=== PATIENT | female | born 1950 | race Caucasian/White ===

== ENCOUNTER → 2016-08-25 | Day surgery (SDC) | payer MEDICARE, OTHER ==
[~2016-08-25] VITALS: Ht 170.2 cm; Wt 79.4 kg
[~2016-08-25] MED LIST: ACETAMINOPHEN 325 MG TAB PO PRN; ACETYLCHOLINE OPHTH SOLN 1% 2ML As Ordered ONE; ACETYLCHOLINE OPHTH SOLN 1% 2ML XX ONE; ALEV220C2 PO; ASPI81TA85 PO; AcetaZOLAMIDE 500 MG ER CAP PO ONE; BSS with VANC/TOB/EPI for EYE CASES IR ONE; CEFUROXIME 1MG/0.1ML INTRACAMERAL INJ As Ordered ONE; CEFUROXIME 1MG/0.1ML INTRACAMERAL INJ ICAM ONE; CYCLOPENTOLATE 2% OPHTH SOLN OS ONE; HEALON DUET (HEALON 10MG/ML 0.55ML & HEALON ENDOCOAT 30MG/ML 0.85ML) As Ordered ONE; HEALON DUET (HEALON 10MG/ML 0.55ML & HEALON ENDOCOAT 30MG/ML 0.85ML) IO ONE; KETOROLAC 0.5% OPHTH SOLN OS ONE; LIDOCAINE 1% SDV 5 ML VIAL As Ordered ONE; LIDOCAINE 1% SDV 5 ML VIAL XX ONE; LIDOCAINE 4% INJ 5 ML AMP OU ONE; LIDOCAINE 4% INJ 5 ML AMP XX ONE; LIDOCAINE W/EPINEPHRINE 1% 20ML VIAL XX ONE; MIDAZOLAM INJ 2 MG/2 ML VIAL (J2250) As Ordered ONE; MULT1CHW39 PO; MULT1TAB10 PO; NEXI40CA PO; OFLOXACIN 0.3 % (OCUFLOX) OPTH SOL 5ML OS ONE; PHENYLEPHRINE 2.5% OPHTH SOL 2ML OS ONE; POVIDONE-IODINE 5% OPHTH PREP SOL 30ML As Ordered ONE; PRAV1TAB39 PO; PROPARACAINE 0.5% OPHTH SOL 15ML OS PRN; TRIMETHOBENZAMIDE 300 MG CAP PO PRN; TROPICAMIDE 1% OPHTH SOLN 2 ML OS ONE; fentaNYL 100 MCG/2 ML INJECTION (J3010) As Ordered ONE
[2016-08-25 12:25] VITALS: BP 130/62
--- NOTE | 2016-08-25 13:05 | RO ---
DATE OF SURGERY: 08/25/2016 PREOPERATIVE DIAGNOSES: Glaucoma and cataract left eye. POSTOPERATIVE DIAGNOSES: Glaucoma and cataract left eye. PROCEDURE: Femtosecond laser with phacoemulsification, intraocular lens implantation model ZLB00 power 10.5 diopters, endocyclophotocoagulation left eye, and an attempted placement of the iStent. SURGEON: Coy Silveira MD DENTAL DETAIL REPRESENTATIVE: ANESTHESIA: DESCRIPTION OF PROCEDURE: Procedure in detail: The patient was brought to the laser room first. After adequate patient interface and suction, OCT images were then taken; and after careful review, the laser was activated. Capsulorrhexis, lens fragmentation, primary and secondary corneal incisions, and arcuate corneal incisions were made according to plan. Suction was released, and the patient was brought to the operating room, laid in supine position. The eye was prepped and draped in a sterile fashion for ophthalmic surgery, and lid speculum was placed in the left eye. All the incisions were opened, followed by injection of EndoCoat into the anterior chamber. This was followed by removal of the capsulotomy and phacoemulsification in a [id number] method. This was followed by aspiration of the corticol material. Healon was then placed into the capsular bag and intraocular lens inserted. Healon was then placed in the ciliary sulcus to visualize the ciliary processes on the video screen with the help of the EndoProbe, and endocyclophotocoagulation was done 280 degrees at 0.25 mW with good results noted on the video screen. The patient's head was then turned away from the surgeon, and microscope was turned towards the surgeon; and Healon was placed into the anterior chamber to visualize the infranasal trabecular meshwork. With the help of the goniolens and high mag, iStent was attempted to be placed, but there was marked amount of bleeding noted at the site of the placement. At that time, it was decided not to place the iStent, and Healon was injected into the anterior chamber to cause tamponade. This was maintained for a couple of minutes. The excess was then aspirated, along with the viscoelastic. Miochol was injected at the end of the case. Eye was observed. There was no more leakage noted. The wound was closed using 10-0 nylon suture. Lid speculum was removed, and the patient was returned to the recovery room in stable condition, and the case was discussed in great detail.
== END | disposition home or self-care (01) ==
LOC: M SDC 07:56
PROVIDERS: ATTEND Ophthalmology
DX: H26.9 Unspecified cataract (principal); H40.9 Unspecified glaucoma; J45.30 Mild persistent asthma, uncomplicated; E78.5 Hyperlipidemia, unspecified; H01.129 Discoid lupus erythematosus of unspecified eye, unspecified eyelid; R73.01 Impaired fasting glucose; M17.0 Bilateral primary osteoarthritis of knee; M19.049 Primary osteoarthritis, unspecified hand; Z79.899 Other long term (current) drug therapy; Z79.82 Long term (current) use of aspirin
CPT/HCPCS: 66183; 66711; 66984; J2250; J3010; V2788

== ENCOUNTER → 2016-09-01 | Day surgery (SDC) | payer MEDICARE, OTHER ==
[~2016-09-01] VITALS: Ht 170.2 cm; Wt 79.4 kg
[~2016-09-01] MED LIST changes: -ACETYLCHOLINE OPHTH SOLN 1% 2ML As Ordered ONE; -ACETYLCHOLINE OPHTH SOLN 1% 2ML XX ONE; -CEFUROXIME 1MG/0.1ML INTRACAMERAL INJ ICAM ONE; +CEFUROXIME INJ 1.5 GM VIAL (J0697) XX ONE; +CYCLOPENTOLATE 2% OPHTH SOLN OD ONE; -CYCLOPENTOLATE 2% OPHTH SOLN OS ONE; +D5W/0.2% SODIUM CHLORIDE 250 ML IV SCH; -HEALON DUET (HEALON 10MG/ML 0.55ML & HEALON ENDOCOAT 30MG/ML 0.85ML) IO ONE; +HEALON DUET (HEALON 10MG/ML 0.55ML & HEALON ENDOCOAT 30MG/ML 0.85ML) XX ONE; +KETOROLAC 0.5% OPHTH SOLN OD ONE; -KETOROLAC 0.5% OPHTH SOLN OS ONE; +LIDOCAINE 2% INJ 100 MG/5 ML SDV (FOR ANES.) As Ordered ONE; -LIDOCAINE 4% INJ 5 ML AMP XX ONE; +MOXIFLOXACIN IN BSS 0.25MG/0.25ML INTRACAMERAL INJ (OR EYE ONLY)(J2280) ICAM ONE; +ONDANSETRON 4MG/2ML VIAL (J2405) As Ordered ONE; +PHENYLEPHRINE 2.5% OPHTH SOL 2ML OD ONE; -PHENYLEPHRINE 2.5% OPHTH SOL 2ML OS ONE; +PROPARACAINE 0.5% OPHTH SOL 15ML OD PRN; -PROPARACAINE 0.5% OPHTH SOL 15ML OS PRN; +TRIAMCINOLONE PRES FR 40 MG/ML 1ML(TRIESENCE)(OR EYE ONLY)(J3300 PER 1MG) IO ONE; +TROPICAMIDE 1% OPHTH SOLN 2 ML OD ONE; -TROPICAMIDE 1% OPHTH SOLN 2 ML OS ONE
[2016-09-01 12:35] VITALS: BP 137/75
--- NOTE | 2016-09-01 23:20 | RO ---
DATE OF PROCEDURE: 09/01/2016 PREPROCEDURE DIAGNOSES: Cataract and glaucoma left eye. POSTPROCEDURE DIAGNOSES: Cataract and glaucoma left eye. OPERATIVE PROCEDURE: Femtosecond laser with phacoemulsification and intraocular lens implantation. Endocyclophotocoagulation left eye. Also attempted I-Stent placement. Intraocular lens used was model ZKB00, power 10 diopters. SURGEON: Coy Silveira MD FERMENTATION MANAGER: None. ANESTHESIA: COMPLICATIONS: None. DESCRIPTION OF PROCEDURE: The patient was first brought to the laser room. After adequate patient interface and suction, the OCT images were reviewed and laser was activated. Capsulorrhexis, corneal fragmentation, primary, secondary and arcuate incisions were done per plan. The patient's interface was released. The patient was then brought to the operating room, laid in a supine position. The eye was prepped and draped in a sterile fashion for opthalmic surgery, and a lid speculum was placed. The primary and corneal incisions were opened and capsulorrhexis aspirated followed by phacoemulsification in a divide and conquer method within the capsular bag. Cortical material was then aspirated using irrigation aspiration cannula and Healon injection into the bag followed by placement of the intraocular lens. Healon was then placed in the ciliary sulcus to visualize the ciliary processes and endocyclophotocoagulation was done 280 degrees at 0.25 mV under direct visualization on the video screen with the help of the EndoProbe. Excellent results were noted. The I-Stent was then attempted to be placed in the intranasal quadrant under high mag and under the corneal lens, but every time that we touched the trabecular meshwork there was excessive oozing and it was decided to abort. Excess viscoelastic was then aspirated. Wound was hydrated. Lid speculum removed. The patient returned to the recovery room in stable condition. The case was discussed in detail.
== END | disposition home or self-care (01) ==
LOC: M SDC 09:30
PROVIDERS: ATTEND Ophthalmology
DX: H26.9 Unspecified cataract (principal); H40.9 Unspecified glaucoma; J45.30 Mild persistent asthma, uncomplicated; K21.9 Gastro-esophageal reflux disease without esophagitis; E78.5 Hyperlipidemia, unspecified; R73.01 Impaired fasting glucose; Z79.899 Other long term (current) drug therapy
CPT/HCPCS: 66183; 66711; 66984; J0697; J2250; J2280; J2405; J3010; J3300; V2788

== ENCOUNTER 2017-08-11 07:23 | Day surgery (SDC) | payer MEDICARE, OTHER ==
[2017-08-11] MEDS ORDERED: PROPOFOL 500 MG/50 ML VIAL As Ordered (07:46)
[2017-08-11] MEDS ORDERED: LIDOCAINE 2% INJ 100 MG/5 ML SDV (FOR ANES.) As Ordered (07:50)
[2017-08-11] MEDS ORDERED: NS 1,000 ML IV (08:00)
[2017-08-11] MEDS ORDERED: fentaNYL 100 MCG/2 ML INJECTION (J3010) As Ordered (08:20)
== END 2017-08-11 09:34 | disposition home or self-care (01) ==
LOC: M OPP 07:23
DX: Z12.11 Encounter for screening for malignant neoplasm of colon (principal); K57.30 Diverticulosis of large intestine without perforation or abscess without bleeding; K44.9 Diaphragmatic hernia without obstruction or gangrene; K22.8 Other specified diseases of esophagus; K31.89 Other diseases of stomach and duodenum; E78.5 Hyperlipidemia, unspecified; K21.9 Gastro-esophageal reflux disease without esophagitis; M19.90 Unspecified osteoarthritis, unspecified site; R06.2 Wheezing; Z79.899 Other long term (current) drug therapy; Z79.82 Long term (current) use of aspirin; Z78.0 Asymptomatic menopausal state; Z87.19 Personal history of other diseases of the digestive system
CPT/HCPCS: G0121

== ENCOUNTER → 2024-07-10 | Outpatient (CLI) | payer MEDICARE, OTHER ==
[~2024-07-10] MED LIST changes: -ACETAMINOPHEN 325 MG TAB PO PRN; -ASPI81TA85 PO; +ASPI81TA86 PO; -AcetaZOLAMIDE 500 MG ER CAP PO ONE; -BSS with VANC/TOB/EPI for EYE CASES IR ONE; -CEFUROXIME 1MG/0.1ML INTRACAMERAL INJ As Ordered ONE; -CEFUROXIME INJ 1.5 GM VIAL (J0697) XX ONE; -CYCLOPENTOLATE 2% OPHTH SOLN OD ONE; -D5W/0.2% SODIUM CHLORIDE 250 ML IV SCH; -HEALON DUET (HEALON 10MG/ML 0.55ML & HEALON ENDOCOAT 30MG/ML 0.85ML) As Ordered ONE; -HEALON DUET (HEALON 10MG/ML 0.55ML & HEALON ENDOCOAT 30MG/ML 0.85ML) XX ONE; -KETOROLAC 0.5% OPHTH SOLN OD ONE; +LATA0.0013 OU; -LIDOCAINE 1% SDV 5 ML VIAL As Ordered ONE; -LIDOCAINE 1% SDV 5 ML VIAL XX ONE; -LIDOCAINE 2% INJ 100 MG/5 ML SDV (FOR ANES.) As Ordered ONE; -LIDOCAINE 4% INJ 5 ML AMP OU ONE; -LIDOCAINE W/EPINEPHRINE 1% 20ML VIAL XX ONE; -MIDAZOLAM INJ 2 MG/2 ML VIAL (J2250) As Ordered ONE; -MOXIFLOXACIN IN BSS 0.25MG/0.25ML INTRACAMERAL INJ (OR EYE ONLY)(J2280) ICAM ONE; -MULT1CHW39 PO; +MULT200T9 PO; -OFLOXACIN 0.3 % (OCUFLOX) OPTH SOL 5ML OS ONE; -ONDANSETRON 4MG/2ML VIAL (J2405) As Ordered ONE; -PHENYLEPHRINE 2.5% OPHTH SOL 2ML OD ONE; -POVIDONE-IODINE 5% OPHTH PREP SOL 30ML As Ordered ONE; -PROPARACAINE 0.5% OPHTH SOL 15ML OD PRN; -TRIAMCINOLONE PRES FR 40 MG/ML 1ML(TRIESENCE)(OR EYE ONLY)(J3300 PER 1MG) IO ONE; -TRIMETHOBENZAMIDE 300 MG CAP PO PRN; -TROPICAMIDE 1% OPHTH SOLN 2 ML OD ONE; -fentaNYL 100 MCG/2 ML INJECTION (J3010) As Ordered ONE
[2024-07-10 11:11] LABS: ALBUMIN 3.8 G/DL (3.2-5.2); ALKALINE PHOSPHATASE 69 U/L (35-104); ALT/SGPT 25 U/L (7.0-40); AST/SGOT 18 U/L (<34); BILIRUBIN,TOTAL 0.7 MG/DL (0.3-1.2); BLOOD UREA NITROGEN 22 MG/DL (9-23); CALCIUM LEVEL 9.6 MG/DL (8.3-10.6); CARBON DIOXIDE LEVEL 31 MMOL/L (20-31); CHLORIDE LEVEL 107 MMOL/L (98-107); CHOLESTEROL LEVEL 195 MG/DL (<200); CHOLESTEROL RISK RATIO 2.66 (<5); CREATININE FOR GFR 0.57 MG/DL (0.55-1.30); GLOMERULAR FILTRATION RATE > 60.0 (>39); GLUCOSE, FASTING 99 MG/DL (74-106); HDL CHOLESTEROL 73.2 MG/DL (>40); LDL CHOLESTEROL 98.8 MG/DL (<100); NON-HDL-C 121.8 MG/DL; POTASSIUM SERUM 5.1 MMOL/L (3.5-5.1); SODIUM LEVEL 145 MMOL/L (136-145); TOTAL PROTEIN 6.5 G/DL (5.7-8.2); TRIGLYCERIDES LEVEL 115 MG/DL (<150)
== END ==
LOC: M WUC 09:02
PROVIDERS: ATTEND Internal Medicine
DX: E78.5 Hyperlipidemia, unspecified (principal)

== ENCOUNTER → 2025-07-08 | Outpatient (CLI) | payer MEDICARE, OTHER ==
[2025-07-08 12:53] LABS: ALT/SGPT 37 U/L (7.0-40); AST/SGOT 32 U/L (<34); CALCIUM LEVEL 9.4 MG/DL (8.3-10.6); CARBON DIOXIDE LEVEL 30 MMOL/L (20-31); CHLORIDE LEVEL 106 MMOL/L (98-107); CHOLESTEROL LEVEL 223 MG/DL (<200); CHOLESTEROL RISK RATIO 3.26 (<5); CREATININE FOR GFR 0.61 MG/DL (0.55-1.30); GLOMERULAR FILTRATION RATE > 90.0 (>39); LDL CHOLESTEROL 103.2 MG/DL (<100); NON-HDL-C 154.8 MG/DL; POTASSIUM SERUM 5.3 MMOL/L (3.5-5.1); SODIUM LEVEL 144 MMOL/L (136-145); TRIGLYCERIDES LEVEL 258 MG/DL (<150)
== END ==
LOC: M WUC 09:05
PROVIDERS: ATTEND Internal Medicine
DX: E78.5 Hyperlipidemia, unspecified (principal); R73.01 Impaired fasting glucose; K21.9 Gastro-esophageal reflux disease without esophagitis